=== PATIENT | female | born 1995 | race Caucasian/White ===

== ENCOUNTER 2021-04-02 12:15 | Outpatient (CLI) | payer BC | END 2021-04-02 12:16 | disposition home or self-care (01) | LOC: LAB 12:15 | PROVIDERS: ATTEND Surgery | DX: Z01.812 Encounter for preprocedural laboratory examination (principal); K61.1 Rectal abscess; Z20.822 Contact with and (suspected) exposure to COVID-19 ==

== ENCOUNTER 2021-04-04 13:51 | Day surgery (SDC) | payer BC ==
[~2021-04-04 13:51] MED LIST: CIPROFLOXACIN 400 MG/200 ML 400 MG/200 ML BAG IV ONE
[2021-04-04] MEDS ORDERED: metroNIDAZOLE 500 MG/100 ML 500 MG/100 ML BAG ONE (14:05)
[2021-04-04 14:09] LABS: HCG UR QUAL NEGATIVE
[2021-04-04] MEDS ORDERED: LACTATED RINGERS 1,000 ML IV ONE (14:28)
[2021-04-04] MEDS ORDERED: MORPHINE 2 MG/ML CARPUJECT IVP PRN (14:59)
[2021-04-04] MEDS ORDERED: NALOXONE 0.4 MG/ML VIAL IVP PRN (14:59)
[2021-04-04] MEDS ORDERED: METOCLOPRAMIDE 10 MG/2 ML VIAL IVP PRN (14:59)
[2021-04-04] MEDS ORDERED: ePHEDrine 50 MG/ML VIAL IVP PRN (14:59)
[2021-04-04] MEDS ORDERED: HYDROmorphone 0.5 MG/0.5 ML SYRINGE IVP PRN ×2 (14:59→16:52)
[2021-04-04] MEDS ORDERED: ATROPINE ABBOJECT 1 MG/10 ML SYRINGE IVP PRN (14:59)
[2021-04-04] MEDS ORDERED: ONDANSETRON 4 MG/2 ML VIAL IVP PRN (14:59)
[2021-04-04] MEDS ORDERED: fentaNYL 100 MCG/2 ML VIAL IVP PRN (14:59)
--- NOTE | 2021-04-04 14:59 | ANESTHESIA ---
Pre-Anesthesia VS, & Labs - Diagnosis anal fistula - Procedure colonoscopy, EUA Vital Signs: Temp Pulse Resp BP Pulse Ox 36.7 C 85 16 133/77 H 96 04/04/21 14:07 04/04/21 14:07 04/04/21 14:07 04/04/21 14:07 04/04/21 14:07 Height: 5 ft 9 in Weight (kg): 80.9 kg Body Mass Index: 26.3 BMI Classification: Overweight - NPO >8 hours - Is Patient ?: No Home Medications and Allergies Home Medications: Ambulatory Orders No Known Home Medications 04/02/21 No Known Home Medications 04/02/21 Allergies/Adverse Reactions: Allergies Allergy/AdvReac Type Severity Reaction Status Date / Time Penicillins Allergy Rash Verified 04/02/21 09:06 Anes History & Medical History - Anesthetic History Anesthesia Complications: reports: No previous complications Family history of Anesthesia Complications: Denies Family history of Malignant Hyperthermia: Denies - Medical History Cardiovascular: reports: None Pulmonary: reports: None Gastrointestinal: reports: None Urinary: reports: None Musculoskeletal: reports: None Endocrine/Autoimmune: reports: None Skin: reports: None - Surgical History Orthopedic: reports: Arthroscopic surgery Exam General: Alert, Oriented x3, Cooperative Mouth Openin Fingerbreadth Neck Mobility: Normal Mallampati classification: II Thyromental Distance: 4-6 cm Respiratory: Lungs clear Cardiovascular: Regular rate Plan Anesthesia Type: General Consent for Procedure(s) Verified and Reviewed: Yes Code Status: Attempt Resuscitation ASA classification: 1-Healthy patient Is this case an emergency?: No
[2021-04-04] MEDS ORDERED: LACTATED RINGERS 1,000 ML IV SCH (15:00)
[2021-04-04] MEDS ORDERED: MIDAZOLAM 2 MG/2 ML VIAL ONE (15:51)
[2021-04-04] MEDS ORDERED: PROPOFOL 200 MG/20 ML VIAL IVP ONE (15:51)
[2021-04-04] MEDS ORDERED: LIDOCAINE-MPF 2% 5 ML VIAL ONE (15:51)
[2021-04-04] MEDS ORDERED: fentaNYL 100 MCG/2 ML VIAL ONE (15:51)
[2021-04-04] MEDS ORDERED: ONDANSETRON 4 MG/2 ML VIAL ONE (15:52)
[2021-04-04] MEDS ORDERED: DEXAMETHASONE 4 MG/ML VIAL ONE (15:52)
[2021-04-04] MEDS ORDERED: SEVOFLURANE 250 ML LIQUID INH ONE (16:39)
[2021-04-04] MEDS ORDERED: BUPIVACAINE 0.5%-EPI 1:200000 PF 30 ML VIAL ONE (16:41)
[2021-04-04] MEDS ORDERED: BUPIVACAINE 0.5%-EPI 1:200000 PF 30 ML VIAL SUBQ ONE (16:48)
[2021-04-04] MEDS ORDERED: LIDOCAINE MPF 1%-EPI 1:200000 30 ML VIAL SUBQ ONE (16:48)
[2021-04-04] MEDS ORDERED: oxyCODONE 5 MG TABLET PO PRN (16:52)
[2021-04-04] MEDS ORDERED: KETOROLAC 30 MG/ML VIAL ONE (16:59)
[2021-04-04] MEDS ORDERED: LACTATED RINGERS 800 ML IV ONE (16:59)
[2021-04-04] MEDS ORDERED: ACETAMINOPHEN 1,000 MG/100 ML 100 ML IV ONE (16:59)
--- NOTE | 2021-04-04 17:04 | OPERATIVE REPORT ---
Operative Report - General Procedure Date: 04/04/21 Planned Procedure: 1. Exam under anesthesia 2. Incision and drainage 3. Intraoperative colonoscopy 4. Enteroscopy 5. Random biopsies 6. Seton placement 7. Pudendal block Pre-Op Diagnosis: Recurrent abscess; presumptive fistula Procedure Performed: 1. Exam under anesthesia 2. Incision and drainage 3. Intraoperative colonoscopy 4. Enteroscopy 5. Random biopsies 6. Seton placement 7. Pudendal block Post Op Diagnosis: Same; transphincteric fistula left lateral - Procedure Note Primary Surgeon: Jones Secondary Surgeon: Jenny Anesthesia Provider: John Anesthesia Technique: General ET tube, Local Pathology: 1. Terminal ileal biopsies 2. Random colon biopsies Estimated Blood Loss (mL): 5 Drain/Tube Type: Other (Rectal packing) Indications: See EMR Findings: 1. 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 Large anterior rectocele 3. Sphincteric thinning 4. Coloscopic findings are as follows: 1. Appropriate prep 2. Ileocecal valve achieved as evidenced by the appendiceal orifice both photographed. 3. Terminal ileum intubated with no enteritis. 4. Cecum without cecitis. The entirety of the colon was out colitis. No diverticulosis or diverticulitis. 5. Careful slow withdrawal without any notable pathology. 6. No masses or polyps appreciated. Mildly tortuous colon 7. Rectum without proctitis. Sigmoid without diverticulosis. No diverticulitis. 8. Internal hemorrhoids nonbleeding. Complications: NONE - Other Other Information/Narrative: Intraoperative findings: 1. 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 Large anterior rectocele 3. Sphincteric thinning 4. Coloscopic findings are as follows: 1. Appropriate prep 2. Ileocecal valve achieved as evidenced by the appendiceal orifice both photographed. 3. Terminal ileum intubated with no enteritis. 4. Cecum without cecitis. The entirety of the colon was out colitis. No diverticulosis or diverticulitis. 5. Careful slow withdrawal without any notable pathology. 6. No masses or polyps appreciated. Mildly tortuous colon 7. Rectum without proctitis. Sigmoid without diverticulosis. No diverticulitis. 8. Internal hemorrhoids nonbleeding. Anorectal Exam: Inspection: External Hemorrhoids -none Fissure in ano -none Erythema (perianal) -none Other -left lateral chronic scar with associated granulation Palpation: Fluctuance -left lateral Palpable cord -left lateral Scar tissue -palpable left lateral Induration -improved, left lateral Digital Rectal Exam: Rectal Tone -good Fluctuance -left lateral Sphincter -intact with left lateral transphincteric fistula Masses -none Rectocele -anterior large; no history of obstetrical trauma or otherwise Anoscopy: Hemorrhoids - Grade II Bleeding -none Distal proctitis -none Operative Report: The patient was taken to the operating room, placed supine on operating table. Bilateral lower extremity serial compression devices were placed. After informed consent was confirmed and obtained, patient was induced for anesthesia as per above. The patient was placed in high lithotomy with candy-cane stirrups. At this time a time-out was called and the patient was performed for an intraoperative rigid/flexible endoscopy (see above for details). Digital rectal findings are listed above as well. Patient was thereafter prepped and draped in usual sterile fashion. A time-out was again called and agreed to by all in the room. Local was instilled for a perioperative block. Perioperative antibiotics were administered as listed above within an hour of incision if the patient had not already been dosed preoperatively as scheduled. At this time, the patient was performed for a digital rectal, which was notable for pertinent positives as listed above under brief procedural findings. The patient, thereafter, was then inserted for the colonoscope, which was passed as stated above with noted necessary postural changes or counter-pressure as mentioned in the above listed procedural findings. Prep was as noted above as well. Findings were normal. Biopsies were taken in the terminal ileum as well as in the colon. Please see dedicated endoscopic report. The caecum was achieved as noted by both the ileocecal valve and the appendiceal orifice, both of which were documented in the permanent medical record by photography. The ileocaecal valve was attempted for intubation with findings as listed above. Thereafter, careful circumferential colonoscopic evaluation commenced starting at the level of the caecum and continuing through to the rectosigmoid junction with notable findings as reported above, and polyps or biopsies performed as per above as well. On continued slow withdrawal of the colonoscope the rectosigmoid junction was achieved and rectal findings are as listed above as well. Retroflexion if performed was noted for above listed findings. Findings on retroflexion unremarkable. The patient tolerated the procedure well for which there was no complication. Circumferential exam and evaluation of the perianal skin revealed findings as per above consistent with perianal sepsis with associated fluctuance concerning for an abscess. This in the left lateral quadrant. A planned incision and drainage procedure thereafter was performed incision as medially as possible without injuring the sphincteric complex, which was carefully palpated and protected throughout. Once decompressed, the fluid was sent for culture and sensitivity. The unique characteristics of the cavity are listed above under findings. With the abscess decompressed, we thereafter proceeded to evaluate for the presence of an associated fistulous communication for which there was a clinical suspicion. Thus, the fistula probe was inserted into the cavity without any complication and passed through to the external opening. Please see above for specifics under findings. If the fistula probe was not easily passed, diluted hydrogen peroxide was utilized to identify the internal opening and if extravasation clearly appreciated, it was used to guide the fistula probe towards intubating the track. Classification is listed above. The probe was thereafter used to thread a silastic-vessel loop to act as a seton; this was doubled on itself and sized to fit. Once evaluated for any other tracts, if any, or extension if present (see above for both) the vessel loops were appropriately sized using silk ligatures. The external openings were assured for appropriately opening and sent for pathology as well if indicated. Circumferential exam was again performed without any evidence of bleeding or other pathology. 2 sheets of Surgicel were placed in the anal canal for hemostasis. The patient tolerated the procedure well for which there was no complication. All counts correct for sponges, needles, and instruments. The patient was taken to the post anesthesia care unit in stable condition. Please note that voice recognition software was used to transcribe this note and inadvertent errors might persist in spite of review and editing. I am obliged to you for your attention. I am thankful to you for allowing me to participate with you in this care of this patient.
--- NOTE | 2021-04-04 17:08 | PROVIDER PROGRESS NOTE ---
Progress Note Brief Operative Report - General Procedure Date: 04/04/21 Planned Procedure: 1. Exam under anesthesia 2. Incision and drainage 3. Intraoperative colonoscopy 4. Enteroscopy 5. Random biopsies 6. Seton placement 7. Pudendal block Pre-Op Diagnosis: Recurrent abscess; presumptive fistula Procedure Performed: 1. Exam under anesthesia 2. Incision and drainage 3. Intraoperative colonoscopy 4. Enteroscopy 5. Random biopsies 6. Seton placement 7. Pudendal block Post Op Diagnosis: Same; transphincteric fistula left lateral - Procedure Note Primary Surgeon: Jones Secondary Surgeon: Jenny Anesthesia Provider: John Anesthesia Technique: General ET tube, Local Pathology: 1. Terminal ileal biopsies 2. Random colon biopsies Estimated Blood Loss (mL): 5 Drain/Tube Type: Other (Rectal packing) Indications: See EMR Findings: 1. 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 Large anterior rectocele 3. Sphincteric thinning 4. Coloscopic findings are as follows: 1. Appropriate prep 2. Ileocecal valve achieved as evidenced by the appendiceal orifice both photographed. 3. Terminal ileum intubated with no enteritis. 4. Cecum without cecitis. The entirety of the colon was out colitis. No diverticulosis or diverticulitis. 5. Careful slow withdrawal without any notable pathology. 6. No masses or polyps appreciated. Mildly tortuous colon 7. Rectum without proctitis. Sigmoid without diverticulosis. No diverticulitis. 8. Internal hemorrhoids nonbleeding. Complications: NONE
--- NOTE | 2021-04-04 17:18 | ANESTHESIA POST OP EVALUATION ---
Anesthesia Post Eval - Post Anesthesia Eval Vitals: Last Vital Signs Temp 36.6 C 04/04/21 17:05 Pulse 90 04/04/21 17:05 Resp 14 04/04/21 17:05 BP 141/90 H 04/04/21 17:05 Pulse Ox 100 04/04/21 17:05 CV Function Including HR & BP: Stable Pain Control: Satisfactory Nausea & Vomiting: Negative Mental Status: Baseline Respiratory Status: Airway Patent Hydration Status: Satisfactory Anesthesia Complications: None
[2021-04-04] MEDS ORDERED: oxyCODONE 5 MG TABLET ONE (17:33)
[2021-04-04 17:46] VITALS: BP 128/86
== END 2021-04-04 13:52 | disposition home or self-care (01) ==
LOC: EDSEX → SDS 13:51
PROVIDERS: ATTEND Surgery
PROC: 0DBB8ZX Excision of Ileum, Via Natural or Artificial Opening Endoscopic, Diagnostic (ICD-10-PCS; 2021-04-04)
PROC: 0DBH8ZX Excision of Cecum, Via Natural or Artificial Opening Endoscopic, Diagnostic (ICD-10-PCS; principal; 2021-04-04 15:15)
DX: K61.4 Intrasphincteric abscess (principal); N81.6 Rectocele; K64.8 Other hemorrhoids
CPT/HCPCS: 45380; 46020; 46270; 81025; 88305; A9270; J0131; J3490; J7120

== ENCOUNTER 2022-06-15 15:33 | Emergency (ER) | payer BC ==
[2022-06-15 15:38] VITALS: BP 142/85
[2022-06-15] MEDS ORDERED: BUTALB/ACETAM/CAFF 50/325/40MG TABLET PO STA (15:49)
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
== END 2022-06-15 17:38 | disposition home or self-care (01) ==
LOC: ED 15:33
DX: S09.90XA Unspecified injury of head, initial encounter (principal); W20.8XXA Other cause of strike by thrown, projected or falling object, initial encounter
CPT/HCPCS: 70450; 99284; A9270

== ENCOUNTER 2024-03-06 14:34 | Outpatient (CLI) | payer MEDICAID | END 2024-03-06 14:35 | disposition home or self-care (01) | LOC: LAB 14:34 | PROVIDERS: ATTEND Registered Nurse | DX: L02.91 Cutaneous abscess, unspecified (principal) | CPT/HCPCS: 87070; 87205 ==

== ENCOUNTER 2024-03-20 07:44 | Outpatient (CLI) | payer MEDICAID ==
[2024-03-20 14:50] LABS: BASOPHILS % (AUTO) 0.5 %; EOSINOPHILS # (AUTO) 0.4 10^3/uL (0.0-0.7); HCT - HEMATOCRIT 42.7 % (37.0-47.0); HGB - HEMOGLOBIN 13.7 g/dL (12.0-16.0); LYMPHOCYTES # (AUTO) 1.1 10^3/uL (1.5-3.5); LYMPHOCYTES % (AUTO) 13.9 %; MEAN CORPUSCULAR HGB CONC 32.1 g/dL (32.0-36.0); MEAN CORPUSCULAR VOLUME 90.3 fL (81.0-99.0); MEAN PLATELET VOLUME 9.2 fL (7.9-10.8); MONOCYTES # (AUTO) 0.9 10^3/uL (0.0-1.0); MONOCYTES % (AUTO) 11.3 %; NEUTROPHILS # (AUTO) 5.6 10^3/uL (1.5-6.6); NEUTROPHILS % (AUTO) 68.9 %; PLT - PLATELET COUNT 308 10^3/uL (130-450); RED BLOOD COUNT 4.73 10^6/uL (4.20-5.40); WHITE BLOOD COUNT 8.1 x10^3/uL (4.8-10.8)
[2024-03-20 15:34] LABS: ALBUMIN 4.7 g/dL (3.2-5.5); ALBUMIN/GLOBULIN RATIO 1.5 (1.0-2.2); BILIRUBIN,TOTAL 0.5 mg/dL (0.2-1.0); CALCIUM 9.8 mg/dL (8.5-10.3); CREATININE 0.7 mg/dL (0.6-1.3); POTASSIUM 4.2 mmol/L (3.5-4.5); TOTAL PROTEIN 7.9 g/dL (6.4-8.9)
== END 2024-03-20 07:45 | disposition home or self-care (01) ==
LOC: LAB.S 07:44
PROVIDERS: ATTEND Registered Nurse
DX: L02.91 Cutaneous abscess, unspecified (principal)
CPT/HCPCS: 36415; 80053; 82945; 85025; 86140; 87070; 87205; 89051

== ENCOUNTER 2024-03-22 06:43 | Outpatient (CLI) | payer MEDICAID ==
--- NOTE | 2024-03-22 11:08 | Ultrasound Report ---
PROCEDURE: Chest INDICATIONS: ABSCESS TECHNIQUE: Real-time scanning of the chest was performed, with image documentation. COMPARISON: None. FINDINGS: Subcutaneous, hypoechoic collection measuring 3.6 x 0.7 x 3.5 cm, with a skin tract. Peripheral hyper emia is present. IMPRESSION: Subcutaneous abscess with skin tract, measuring 3.6 x 0.7 x 3.5 cm. Reviewed by: Bassam France MD on 03/22/2024 11:07 AM PDT Approved by: Bassam France MD on 03/22/2024 11:07 AM PDT Station ID: [id number]
== END 2024-03-22 06:44 | disposition home or self-care (01) ==
LOC: DI 06:43
PROVIDERS: ATTEND Registered Nurse
DX: L02.818 Cutaneous abscess of other sites (principal)